=== PATIENT | female | born 1995 | race Caucasian/White ===

== ENCOUNTER 2017-12-20 15:00 | Emergency (ER) | payer BC ==
[2017-12-20 16:15] LABS: #Basophils 0.1 thou/uL (0.0-0.2); #Eosinphils 0.1 thou/uL (0.0-0.7); #Lymphocytes 3.1 thou/uL (1.20-3.40); #Monocytes 0.6 thou/uL (0.11-0.59); #Neutrophils 5.4 thou/uL (1.40-6.50); %Lymphocytes 33.8 % (21.0-51.0); %Monocytes 6.3 % (0.0-10.0); Hemoglobin 14.4 g/dL (12.0-16.0); Mean Corpuscular HGB CONC 34.8 g/dL (32.0-36.0); Mean Corpuscular Hemoglobin 32.4 pg (27.0-31.0); Mean Corpuscular Volume 93.2 fL (78.0-98.0); Mean Platelet Volume 7.8 fL (7.4-10.4); Platelet Count 403 thou/uL (130-400); RBC Distribution Width 11.8 % (11.5-14.5); Red Blood Cell (RBC) Count 4.45 mill/uL (4.20-5.40); White Blood Cell (WBC) Count 9.3 thou/uL (4.8-10.8)
[2017-12-20 16:21] LABS: BHCG - Serum POSITIVE (NEGATIVE); Pregs Control Background? CLEAR/WHITE (CLR/WHITE); Pregs Control Bar Appear? YES (CONTROL BAR)
[2017-12-20 16:39] LABS: Bilirubin Negative (Negative); Blood, Urine Negative (Negative); Clarity CLEAR (Clear); Glucose, Urine (Dipstick) Negative (Negative); Leukocyte Negative (Negative); Nitrite Negative (Negative); Protein, Urine (Dipstick) Negative (Neg-Trace); Specific Gravity, Urine 1.015 (1.002-1.036); pH, Urine 7.5 (5.0-9.0)
--- NOTE | 2017-12-20 17:36 | ULT ---
PELVIC ULTRASOUND 12/20/17 COMPARISON: None. HISTORY: Female who claims to be six weeks . Patient passed a clot on the toilet today. TECHNIQUE: Multiplanar pineda scale and color doppler images were obtained in a transabdominal and transvaginal pe lvic ultrasound. Spectral analysis of the doppler waveforms of the ovaries were performed. FINDINGS: There is a small hypoechoic region within the uterus which could represent a very early gestational s ac. No pole or yolk sac is seen within this possible gestational sac. Mean sac diameter is 0.30 cm which would estimate gestational age of 5 weeks, 0 days. No free fluid is seen in the pelvis. The left ovary could not be visualized. The right ovary is elma l in size and appearance and demonstrates normal internal flow. IMPRESSION: Possible early intrauterine . POS: [facility]
== END 2017-12-20 18:19 | disposition home or self-care (01) ==
LOC: ERS 15:00
DX: N93.9 Abnormal uterine and vaginal bleeding, unspecified (principal)
CPT/HCPCS: 36415; 76856; 81003; 84702; 84703; 85025; 86900; 86901